=== PATIENT | male | born 1970 ===

== ENCOUNTER 2017-11-19 12:27 | Emergency (ER) | payer BC, OTHER ==
[2017-11-19] MEDS: ALPRAZOLAM 0.25 MG TAB PO (13:30)
== END 2017-11-19 15:58 | disposition left against medical advice (07) ==
LOC: FTE 12:27
DX: J90 Pleural effusion, not elsewhere classified (principal); F41.9 Anxiety disorder, unspecified; R06.00 Dyspnea, unspecified; F17.210 Nicotine dependence, cigarettes, uncomplicated; Z79.82 Long term (current) use of aspirin
CPT/HCPCS: 71045; 93005; 99284-25